=== PATIENT | female | born 1955 | race Two or more races ===

== ENCOUNTER 2025-08-15 08:52 | Emergency (ER) | payer MEDICARE, MEDICAID, SELFPAY ==
--- NOTE | 2025-08-15 09:07 | XR_ITS ---
Examination: Foot, right, 3 views Technique: AP, oblique, lateral views foot, 3 views Date and time of exam: August 15, 2020 5:10 AM INDICATIONS: Redness swelling and pain involving the right foot today FINDINGS: Severe osteopenia Acute appearing fractures fourth and fifth metatarsal necks No remy cortical bone destruction Soft tissue vascular calcification IMPRESSION: Acute appearing fractures fourth and fifth metatarsal neck, clinical correlation advised
--- NOTE | 2025-08-15 09:08 | XR_ITS ---
Examination: Duplex scan of the lower extremity, unilateral right Date and time of exam: August 15, 2025 0942 hours INDICATIONS: Right And pain beginning 4 days ago Technique: Duplex scan of the extremity veins using B-mode/grayscale imaging and Doppler spectral analysis and color flow Attention is directed to internal echogenicity, compression and augmentation involving these veins, color flow assessment, spectral analysis Findings: Major deep venous structures in the extremity demonstrate normal course and caliber. There is no evidence of deep vein thrombosis. Normal color flow and spectral analysis Impression: Negative for DVT..
--- NOTE | 2025-08-15 09:08 | PD.EDRME ---
Rapid Medical Screening Exam RME Arrival date/time: 08/15/25 08:52 70-year-old female with medical history significant for diabetes, hypertension, kidney disease presents with concerns for right foot swelling and redness ongoing since Tuesday Chief Complaint: Ankle/Foot Injury
[2025-08-15 09:13] VITALS: BP 181/77; PULSE 64; RESP 17; TEMP 36.6; O2SAT 98
[2025-08-15 09:38] LABS: Lactate (Lactic Acid) 2.3 mMol/L (0.4-2.0)
[2025-08-15 09:41] LABS: Basophils # (Auto) 0.1 Thou/mm3 (0.0-0.2); Basophils % (Auto) 1 % (0-2.5); Eosinophils # (Auto) 0.2 Thou/mm3 (0.0-0.5); Eosinophils % (Auto) 2 % (0-10); Hematocrit 32.7 % (36.0-46.0); Hemoglobin 10.3 g/dL (12.0-16.0); Immature Granulocytes Auto 0.03 Thou/mm3 (0.00-0.00); Lymphocytes # (Auto) 1.3 Thou/mm3 (1.0-4.8); Lymphocytes % (Auto) 13 % (10-50); Mean Corpuscular HGB Conc 31.5 g/dl (31.0-37.0); Mean Corpuscular Hemoglobin 26.0 pg (25.0-35.0); Mean Corpuscular Volume 83 fL (80-100); Monocytes # (Auto) 0.7 Thou/mm3 (0.0-0.8); Monocytes % (Auto) 7 % (0-12); Neutrophils # (Auto) 7.9 Thou/mm3 (1.8-7.7); Neutrophils % (Auto) 77 % (37-80); Nucleated Red Blood Cell # 0.00 Thou/mm3 (0.00-0.00); Nucleated Red Blood Cell % 0 /100 WBC (0); Platelet Count 230 Thou/mm3 (140-440); RDW Standard Deviation 46.1 fL (36.4-46.3); Red Blood Count 3.96 Miln/mm3 (4.00-5.20); White Blood Count 10.2 Thou/mm3 (3.6-11.0)
[2025-08-15 09:50] LABS: Sed Rate (ESR) 83 mm/hr (0-30)
[2025-08-15 10:03] LABS: Glucose Estimated Average 148 mg/dL (80-131); Hemoglobin A1C 6.8 % Hgb (4.8-6.0)
[2025-08-15 10:35] LABS: Alanine Aminotransferase < 7 U/L (10-49); Albumin, Serum 3.3 gm/dL (3.4-4.8); Albumin/Globulin Ratio 1.7 (1.2-2.2); Alkaline Phosphatase 81 U/L (46-116); Anion Gap 11 (7-16); Aspartate Amino Transferase < 8 U/L (0-34); BUN/Creatinine Ratio 12 Ratio (12-20); Bilirubin,Total 0.5 mg/dL (0.3-1.2); Blood Urea Nitrogen 62 mg/dL (9-23); C-Reactive Protein 1.9 mg/dL (0.0-0.9); Calcium 9.0 mg/dL (8.3-10.6); Calcium (Corrected) 9.6 mg/dL (8.5-10.1); Carbon Dioxide 27.9 mMol/L (20.0-31.0); Chloride 106 mMol/L (98-107); Creatinine (Component) 5.1 mg/dL (0.6-1.3); Globulin 2.0 gm/dL (2.3-3.5); Glucose 235 mg/dL (74-106); Osmolality,Calculated 314 (275-295); Potassium 3.7 mMol/L (3.4-5.1); Procalcitonin 0.12 ng/ml (0.0-0.49); Sodium 145 mMol/L (136-145); Total Protein 5.3 gm/dL (5.7-8.2); eGFR 8 See Note
--- NOTE | 2025-08-15 11:47 | PD.EDANKLE ---
Lower Extremity Injury RME/HPI General Chief Complaint: Ankle/Foot Injury Stated Complaint: RIGHT FOOT PAIN/SWELLING/REDNESS Time Seen by Provider: 08/15/25 11:13 Arrival date/time: 08/15/25 08:52 RME / HPI RME / HPI Narrative: 70-year-old female with medical history significant for diabetes, hypertension, kidney disease presents with concerns for right foot swelling and redness ongoing since Tuesday. Severity mild. Patient denies any fever denies any trauma to the foot denies any other complaints. Patient's family is asking me a I can place the patient to fpc due to inability to care herself, patient lives alone. Patient is diabetic, hypertensive, and chronic kidney disease patient is refusing hemodialysis for a while now. Patient is minimally mobile. Related Data Home Medications ?Medication ?Instructions ?Recorded ?Confirmed amlodipine 5 mg tablet 5 mg PO QDAY 01/21/23 07/08/23 atorvastatin 40 mg tablet 40 mg PO QDAY 01/21/23 07/08/23 glipizide 10 mg tablet 10 mg PO BID 01/21/23 07/08/23 insulin glargine 100 unit/mL 25 unit subcut HS 01/21/23 07/08/23 subcutaneous solution (Lantus U-100 Insulin) lisinopril 20 mg tablet 20 mg PO QDAY 01/21/23 07/08/23 insulin lispro 100 unit/mL See Rx Instructions .Route .COMPLEX 07/11/23 subcutaneous pen (Humalog KwikPen (U-100) Insulin) Previous Rx's ?Medication ?Instructions ?Recorded amoxicillin 875 mg-potassium 1 tab PO BID #14 tabs 08/15/25 clavulanate 125 mg tablet ibuprofen 600 mg tablet 600 mg PO Q8H PRN pain #30 tabs 08/15/25 Allergies Allergy/AdvReac Type Severity Reaction Status Date / Time Anesthetics - Akua Type- Allergy Severe Unresponsiv Verified 07/11/23 09:25 Parabens e Review of Systems Review of Systems Narrative Review of Systems: Review of system reviewed and within normal limits except mentioned in HPI ED Exam Narrative Physical exam: VITAL SIGNS: Reviewed. GENERAL APPEARANCE: Alert and interactive, follows commands, no acute distress, chronically ill HEAD AND FACE: Non-traumatic. ENT: PERRL, pale conjunctiva, eyelid no trauma, Mucous membrane moist. NECK: Supple, nontender, no nuchal rigidity. CHEST: No tenderness, no crepitus, no paradoxical movement, no retractions. LUNGS: Clear, well ventilated, symmetric, no rales, no wheezing, no ronchi, no stridor, good breath sounds bilaterally. HEART: Regular rate, regular rhythm, no murmur, no gallops. ABDOMEN: Soft, positive bowel sounds, nondistended, no guarding, nontender, no rebound, no masses, RECTAL: Deferred. GENITAL: Deferred. NEUROLOGICAL: Gross motor function intact sensory function intact, Appropriate for age. MUSCULOSKELETAL: low back nontender, full range of motion. EXTREMITIES:+ Right foot redness on the 4th and 5th metatarsal phalangeal area dorsal aspect nontender, full range of motion. SKIN: Color pink, dry, no rash, no lacerations, no abrasions, no contusions. LYMPHATICS: Deferred. Course Quality Measures none Orders Category Date Time Status Consult Mineral Surveying Technician NOW Care 08/15/25 11:45 Active Splint / Immobilizer STAT Care 08/15/25 11:45 Active PT [Referral Physical Therapy] Stat Cons 08/15/25 12:06 Active US venous doppler LE RT Stat Exams 08/15/25 09:08 Completed XR foot comp RT min 3V Stat Exams 08/15/25 09:07 Completed A1C [Glycohemoglobin w (eAG)] Stat Lab 08/15/25 09:22 Completed Blood Culture (Lab) Stat Lab 08/15/25 09:22 Received CBC Stat Lab 08/15/25 09:22 Completed CMP [Comprehensive Metabolic Panel] Stat Lab 08/15/25 09:22 Completed CRP [C-Reactive Protein] Stat Lab 08/15/25 09:22 Completed ESR [Sed Rate (ESR)] Stat Lab 08/15/25 09:22 Completed Lactic Acid [Lactate (Lactic Acid)] Stat Lab 08/15/25 09:22 Completed Lactic Acid, 3 HR Stat Lab 08/15/25 12:46 Completed Procalcitonin Stat Lab 08/15/25 09:22 Completed Amoxicillin/Pot Clav 875 [Augmentin 875] Med 08/15/25 11:45 Discontinued 1 tab PO X1 ONE Vital Signs Vital signs: Vital Signs Temperature 97.8 F 08/15/25 09:13 Pulse Rate 64 08/15/25 09:13 Respiratory Rate 17 08/15/25 09:13 Blood Pressure 181/77 H 08/15/25 09:13 Pulse Oximetry (%) 98 08/15/25 09:13 Oxygen Delivery Method Room Air 08/15/25 09:13 Extremity Injury, Lower MDM Narrative [facility] Narrative:: 70-year-old female with medical history significant for diabetes, hypertension, kidney disease presents with concerns for right foot swelling and redness ongoing since Tuesday. Severity mild. Patient denies any fever denies any trauma to the foot denies any other complaints. Patient's family is asking me a I can place the patient to fpc due to inability to care herself, patient lives alone. Patient is diabetic, hypertensive, and chronic kidney disease patient is refusing hemodialysis for a while now. Patient is minimally mobile. X-ray of the foot showed minimally displaced fracture of the 4th and 5th metatarsal neck. Ultrasound of bilateral lower extremities negative for DVT. Patient's laboratory workup is negative for leukocytosis slight anemia 10.3 hematocrit of 32.7 creatinine today was noted to be 5.1 BUN of 62 patient's hemoglobin A1c 6.8 Patient received Augmentin and an Ortho shoe applied. Patient is medically cleared for placement to fpc She was referred to social security specialist feeder worker power unit operator talked to the patient, and patient refused to go to a fpc or any facility. She wanted to go home. She is alert and oriented x 3. Patient data External records reviewed:: None Clinical information provided by:: patient and family Social determinants that could affect healthcare access:: none Patient has the following chronic illnesses:: Hypertension diabetes mellitus chronic kidney disease How is presenting disease/condition affected by chronic disease/condition?: exacerbated by Evaluation data The following diagnostics were reviewed and interpreted by me:: lab results and radiology exam(s) Lab and/or radiology exams considered but not ordered:: None Interpretation Summary: See results MDM Medications / Prescriptions Medications or Prescriptions considered but not ordered:: None Medication administrations:: Medication Administration History Discontinued Medications Amoxicillin/Clavulanate Potassium (Amoxicillin/Pot Clav 875 Tablet) 1 tab PO X1 ONE Stop: 08/15/25 11:46 Last Admin: 08/15/25 12:43 Dose: 1 tab Documented By: CS Augmentin, Consultations Consultation(s) initiated? (list below): No Diagnosis Extremity Injury, Lower Differential Diagnosis: ankle sprain and strain, fracture of toe and ankle fracture Most likely diagnosis given after review of the tests above:: Foot fracture, chronic debility, chronic kidney disease, cellulitis foot Admission Indicated Admission indicated?: not indicated Admission Request Was there a request for admission?: No Disposition Plan Disposition Plan: Discharge Discharge Attestation Discharge Attestation: The patient and all family members were given an opportunity to ask questions and understood the discharge instructions. Discharge instructions specifically effects, indications for sooner follow up or return to the emergency department, and the expected course of current diagnosis. Patient condition: Stable Discharge Plan Plan Patient Disposition: HOME (Self Care) Discharge Disposition comment: Stable Prescriptions/Referrals Prescriptions/Med Rec: New amoxicillin-pot clavulanate 875-125 mg tablet 1 tab PO BID Qty: 14 0RF ibuprofen 600 mg tablet 600 mg PO Q8H PRN (Reason: pain) Qty: 30 0RF No Action atorvastatin 40 mg Tablet 40 mg PO QDAY insulin glargine [Lantus U-100 Insulin] 100 unit/mL Solution 25 unit SUBCUT HS lisinopril 20 mg Tablet 20 mg PO QDAY glipizide 10 mg Tablet 10 mg PO BID amlodipine 5 mg Tablet 5 mg PO QDAY insulin lispro [Humalog KwikPen Insulin] 100 unit/mL insulin pen See Rx Instructions .ROUTE .COMPLEX Patient Comments: INJECT 14 A 20 UNIDADES BAJO LA PIEL SIDRA VECES AL D A KITTY LO INDICADO CON ALIMENTO Rx Instructions: 14-20 units with meals ON HOLD Referrals: Elder Samson PA-C [Primary Care Provider] - In 1 week Problem List Clinical Impression: Metatarsal fracture, Chronic kidney disease, Cellulitis of foot Patient/Caregiver Discharge Instructions Discharge Activity: activity as tolerated Education Materials: ED Cellulitis Additional Instructions: Thank you for the opportunity for serving you today. You are stable for discharged . You are advised to: Follow-up with your PCP in 1 to 2 days Return to ED for worsening of symptoms Increase oral fluids Take medication as prescribed Wear your Ortho shoe for the next 1 month ,ask your PCP to refer you to a linotyper Print Language: Tajik Stand Alone Forms: Michelle Award Info., Patient Portal Info Letter VIPUL/JOSIE Supervising Physician TD Supervising Physician: MD Harvey
[2025-08-15 12:35] LABS: Reflex Lactate? Y
[2025-08-15] MEDS: AMOXICILLIN/POT CLAV 875 TABLET 1 TAB PO (12:43)
[2025-08-15 12:51] LABS: Lactic Acid, 3 HR 1.2 mMol/L (0.4-2.0)
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
--- NOTE | 2025-08-15 14:25 | PC.PT ---
PT eval completed.
== END 2025-08-15 14:30 | disposition home or self-care (01) ==
PROVIDERS: Nurse Practitioner Primary Care; Emergency Provider Family Medicine; PCP Family Medicine
DX: S92.341A Displaced fracture of fourth metatarsal bone, right foot, initial encounter for closed fracture (principal); S92.351A Displaced fracture of fifth metatarsal bone, right foot, initial encounter for closed fracture; L03.115 Cellulitis of right lower limb; I12.9 Hypertensive chronic kidney disease with stage 1 through stage 4 chronic kidney disease, or unspecified chronic kidney disease; E11.22 Type 2 diabetes mellitus with diabetic chronic kidney disease; N18.9 Chronic kidney disease, unspecified; X58.XXXA Exposure to other specified factors, initial encounter; Z60.2 Problems related to living alone; Z91.158 Patient's noncompliance with renal dialysis for other reason; Z79.84 Long term (current) use of oral hypoglycemic drugs; Z79.4 Long term (current) use of insulin
CPT/HCPCS: 36415; 73630; 80053; 83036; 83605; 84145; 85025; 85652; 86140; 87040; 87077; 87186; 93971; 99284; A9270

== ENCOUNTER 2025-08-27 08:07 | Emergency (ER) | payer MEDICARE, MEDICAID, SELFPAY ==
[2025-08-27 08:17] VITALS: BP 161/80; PULSE 60; RESP 18; TEMP 36.7; O2SAT 97; BMI 39.6
--- NOTE | 2025-08-27 08:17 | EKG_ITS ---
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: : 1955 Requested By: Rocky Diana Order Number: [id number] Reading MD: Rocky Diana Measurements Intervals [place] Rate: 58 P: -18 MS: 188 QRS: -30 QRSD: 80 T: 146 QT: 439 QTc: 432 Interpretive Statements SINUS BRADYCARDIA LOW QRS VOLTAGE IN PRECORDIAL LEADS [QRS DEFLECTION < 1.0 mV IN CHEST LEADS] POSSIBLE ANTERIOR MYOCARDIAL INFARCTION , PROBABLY OLD [30 ms Q WAVE IN V3/V4, OR R < 0.2 mV IN V4] MODERATE T-WAVE ABNORMALITY, CONSIDER LATERAL ISCHEMIA [-0.1+ mV T-WAVE IN I/aVL/V5/V6] Compared to ECG 01/21/2023 08:31:43 Low QRS voltage now present Myocardial infarct finding now present Possible ischemia now present Sinus rhythm no longer present T-wave abnormality still present /store/S0/[id number]/ecg/[id number].pdf
--- NOTE | 2025-08-27 08:17 | PD.EDRME ---
Rapid Medical Screening Exam RME Arrival date/time: 08/27/25 08:07 70-year-old female with a history of hypertension, hyperlipidemia, type 2 diabetes was sent to the emergency room by her primary care provider due to abnormal lab levels. Patient states she does not know exactly what was abnormal but thinks there might be an infection or either problems with her kidney function. I have greeted and performed a focused initial assessment of this patient. A comprehensive ED assessment and evaluation of the patient, analysis of all test results, and completion of the medical decision making process will be conducted by additional ED providers. Chief Complaint: General Adult/Misc Complain Vital signs reviewed by provider: Yes
[2025-08-27 08:42] LABS: Basophils # (Auto) 0.1 Thou/mm3 (0.0-0.2); Basophils % (Auto) 1 % (0-2.5); Eosinophils # (Auto) 0.3 Thou/mm3 (0.0-0.5); Eosinophils % (Auto) 4 % (0-10); Hematocrit 33.0 % (36.0-46.0); Hemoglobin 10.3 g/dL (12.0-16.0); Immature Granulocytes Auto 0.04 Thou/mm3 (0.00-0.00); Lymphocytes # (Auto) 1.7 Thou/mm3 (1.0-4.8); Lymphocytes % (Auto) 20 % (10-50); Mean Corpuscular HGB Conc 31.2 g/dl (31.0-37.0); Mean Corpuscular Hemoglobin 25.9 pg (25.0-35.0); Mean Corpuscular Volume 83 fL (80-100); Monocytes # (Auto) 0.5 Thou/mm3 (0.0-0.8); Monocytes % (Auto) 6 % (0-12); Neutrophils # (Auto) 5.7 Thou/mm3 (1.8-7.7); Neutrophils % (Auto) 68 % (37-80); Nucleated Red Blood Cell # 0.00 Thou/mm3 (0.00-0.00); Nucleated Red Blood Cell % 0 /100 WBC (0); Platelet Count 230 Thou/mm3 (140-440); RDW Standard Deviation 48.3 fL (36.4-46.3); Red Blood Count 3.97 Miln/mm3 (4.00-5.20); White Blood Count 8.4 Thou/mm3 (3.6-11.0)
[2025-08-27 08:44] VITALS: BP 156/97; PULSE 58; RESP 17; TEMP 36.4; O2SAT 98
[2025-08-27 09:01] LABS: Collection Type, Urine Clean Catch
[2025-08-27 09:04] LABS: INR 1.0 (0.9-1.3); Partial Thromboplastin Time 24.4 Seconds (22.0-36.0); Prothrombin Time 10.4 Seconds (9.0-12.2)
[2025-08-27 09:07] LABS: B-Type Natriuretic Peptide 422 pg/mL (0-100)
[2025-08-27 09:19] LABS: Alanine Aminotransferase < 7 U/L (10-49); Albumin, Serum 3.4 gm/dL (3.4-4.8); Albumin/Globulin Ratio 1.5 (1.2-2.2); Alkaline Phosphatase 71 U/L (46-116); Anion Gap 12 (7-16); Aspartate Amino Transferase 10 U/L (0-34); BUN/Creatinine Ratio 10 Ratio (12-20); Bilirubin,Total 0.3 mg/dL (0.3-1.2); Blood Urea Nitrogen 50 mg/dL (9-23); Calcium 9.7 mg/dL (8.3-10.6); Calcium (Corrected) 10.2 mg/dL (8.5-10.1); Carbon Dioxide 25.9 mMol/L (20.0-31.0); Chloride 107 mMol/L (98-107); Creatinine (Component) 5.2 mg/dL (0.6-1.3); Estimated Creatinine Clearance 10.3 mL/min (>60); Globulin 2.2 gm/dL (2.3-3.5); Glucose 262 mg/dL (74-106); Lipase 42 U/L (12-53); Magnesium 1.9 mg/dL (1.6-2.6); Osmolality,Calculated 311 (275-295); Potassium 3.7 mMol/L (3.4-5.1); Sodium 145 mMol/L (136-145); Total Protein 5.6 gm/dL (5.7-8.2); Troponin I < 0.020 ng/mL (0.0-0.045); eGFR 8 See Note
[2025-08-27 09:24] LABS: Bacteria,Urine Rare; Bilirubin,Urine Negative (Negative); Blood,Urine 1+ (Negative); Clarity,Urine Clear (Clear/Hazy); Color,Urine Lt-Yellow (Lt Yel-Yel); Glucose, Urine 3+ (Negative); Hyaline Casts,Urine < 1 /hpf (0-1); Ketones,Urine Negative (Negative); Leukocyte Esterase,Urine Positive (Negative); Nitrite,Urine Negative (Negative); PH,Urine 7.5 (5.0-7.0); Protein,Urine 3+ (Neg - Trace); RBC,Urine 1 /hpf (0-3); Specific Gravity,Urine 1.019 (1.001-1.035); Squamous Epithelial Cell,Urine 19 /hpf (0-5); Urobilinogen,Urine Negative mg/dL (0.0-1.0); WBC,Urine 37 /hpf (0-5)
--- NOTE | 2025-08-27 09:26 | PD.EDADULT ---
ED General RME/HPI General Chief complaint: General Adult/Misc Complain Stated complaint: CALLED/TOLD TO RETURN FOR INFECTION IN BLOOD Time Seen by Provider: 08/27/25 09:04 Arrival date/time: 08/27/25 08:07 RME / HPI RME / HPI narrative: 08/27/25 08:07 70-year-old female with a history of hypertension, hyperlipidemia, type 2 diabetes was sent to the emergency room by her primary care provider due to abnormal lab levels. Patient states she does not know exactly what was abnormal but thinks there might be an infection or either problems with her kidney function. I have greeted and performed a focused initial assessment of this patient. A comprehensive ED assessment and evaluation of the patient, analysis of all test results, and completion of the medical decision making process will be conducted by additional ED providers. DR. PERSON MAIN ED EVALUATION 70 year old female with history of hypertension, diabetes, hyperlipidemia, chronic kidney disease presents to the ED for evaluation of abnormal labs. Patient states she was called today stating she has an infection in her blood. Patient states she last had labs drawn 2 weeks ago while here for an infection in her foot. States last week she was was coughing, none in the last 2 days. Denies chest pain, shortness of breath, abdominal pain, n/v/d, or urinary symptoms. Related Data Home Medications ?Medication ?Instructions ?Recorded ?Confirmed atorvastatin 40 mg tablet 40 mg PO QDAY 01/21/23 07/08/23 glipizide 10 mg tablet 10 mg PO BID 01/21/23 07/08/23 insulin glargine 100 unit/mL 25 unit subcut HS 01/21/23 07/08/23 subcutaneous solution (Lantus U-100 Insulin) lisinopril 20 mg tablet 20 mg PO QDAY 01/21/23 07/08/23 insulin lispro 100 unit/mL See Rx Instructions .Route .COMPLEX 07/11/23 subcutaneous pen (Humalog KwikPen (U-100) Insulin) Previous Rx's ?Medication ?Instructions ?Recorded amoxicillin 875 mg-potassium 1 tab PO BID #14 tabs 08/15/25 clavulanate 125 mg tablet amlodipine 10 mg tablet 10 mg PO QDAY #30 tabs 08/27/25 Allergies Allergy/AdvReac Type Severity Reaction Status Date / Time Anesthetics - Akua Type- Allergy Severe Unresponsiv Verified 08/27/25 08:10 Mynor noriega Review of Systems Review of Systems Systems Reviewed: All systems reviewed, normal except as documented Past Medical History Past Medical History CARDIAC: Positive Cardiac Disorders, Hypercholesterolemia and Hypertension RESPIRATORY: Positive Asthma and Pneumonia GASTROINTESTINAL: Positive Gastrointestinal Disorders and Obesity REPRODUCTIVE: Positive Previous Pregnancies ENT: Positive Cataracts ENDOCRINE: Positive Endocrine Disorders and Diabetes Mellitus Type 2 PSYCHO/SOCIAL: Positive Depression (no meds) OTHER HISTORY: Positive Chicken Pox Family History FAMILY HISTORY: Positive Family Cardiac Disorders Surgical History SURGICAL: Positive Hysterectomy Social History SMOKING STATUS: Never smoker ED Exam Narrative Physical exam: Constitutional: Awake, alert, nontoxic, no acute distress, obese HEENT: NC, AT, EOMI Neck: Supple CV: RRR, no m/r/g Lungs: CTAB, no w/r/r, no respiratory distress. Abd: Soft, NT, NT, no HSM noted to palpation Extremities: Dull old bruising to the dorsal aspect of right foot. No deformities, no edema noted Neuro: AAOx3, CN 2-12 GIBL, no acute neuro deficit noted. Skin: Warm, dry, intact Course Course Course Narrative: 944h: Patient was called back for positive blood culture 1 out of 2 sets from 08/15 that showed Staphylococcus hominis. She is currently asymptomatic, afebrile, feeling well. Blood pressure is noted to be elevated today in the 220's/80's with amlodipine 5 mg and lisinopril 20 mg noted on her medication list. Took her medications this morning. Would consider increasing her amlodipine to 10 mg. Otherwise the remainder of her labs appear stable from previous with normal white count and no clinical evidence of infection. When she was here on the she was treated for cellulitis with course of Augmentin. At this point the positive blood culture appears likely a contaminant. Would adjust her blood pressure medication and have her follow-up with her primary doctor outpatient in the next few days for recheck. Quality Measures none Orders Category Date Time Status EKG (ED ONLY) *Do not use* NOW Care 08/27/25 08:17 Completed EKG (ED Only) Stat Exams 08/27/25 08:17 Draft B-Type Natriuretic Peptide Stat Lab 08/27/25 08:36 Completed CBC Stat Lab 08/27/25 08:36 Completed CMP [Comprehensive Metabolic Panel] Stat Lab 08/27/25 08:36 Completed Lipase Stat Lab 08/27/25 08:36 Completed Magnesium Stat Lab 08/27/25 08:36 Completed PT [Prothrombin Time with INR] Stat Lab 08/27/25 08:36 Completed PTT [Partial Thromboplastin Time] Stat Lab 08/27/25 08:36 Completed Troponin I Stat Lab 08/27/25 08:36 Completed UA [Urinalysis] Stat Lab 08/27/25 08:40 Completed Urine Culture Stat Lab 08/27/25 08:40 Received amLODIPine BESYLATE [Norvasc] Med 08/27/25 09:53 Discontinued 5 mg PO X1 ONE Vital Signs Vital signs: Vital Signs Temperature 98.1 F 08/27/25 08:17 Pulse Rate 60 08/27/25 08:17 Respiratory Rate 18 08/27/25 08:17 Blood Pressure 161/80 H 08/27/25 08:17 Pulse Oximetry (%) 97 08/27/25 08:17 Oxygen Delivery Method Room Air 08/27/25 08:17 Pulse ox is 97% on room air which is adequate. Discharge Plan Plan Patient Disposition: HOME (Self Care) Patient condition on transfer: Stable Prescriptions/Referrals Prescriptions/Med Rec: New amlodipine 10 mg tablet 10 mg PO QDAY Qty: 30 0RF Discontinued amlodipine 5 mg Tablet 5 mg PO QDAY ibuprofen 600 mg tablet 600 mg PO Q8H PRN (Reason: pain) Qty: 30 0RF No Action atorvastatin 40 mg Tablet 40 mg PO QDAY insulin glargine [Lantus U-100 Insulin] 100 unit/mL Solution 25 unit SUBCUT HS lisinopril 20 mg Tablet 20 mg PO QDAY glipizide 10 mg Tablet 10 mg PO BID insulin lispro [Humalog KwikPen Insulin] 100 unit/mL insulin pen See Rx Instructions .ROUTE .COMPLEX Patient Comments: INJECT 14 A 20 UNIDADES BAJO LA PIEL SIDRA VECES AL D A KITTY LO INDICADO CON ALIMENTO Rx Instructions: 14-20 units with meals ON HOLD amoxicillin-pot clavulanate 875-125 mg tablet 1 tab PO BID Qty: 14 0RF Problem List Clinical Impression: Abnormal laboratory test result, Hypertension, uncontrolled Patient/Caregiver Discharge Instructions Education Materials: Controlling High Blood Pressure, Low-Salt Choices, Hypertension Dc, Eating Heart-Healthy Foods Additional Instructions: Some general health principles that can benefit you are the [employer] principles Nutrition (plant-based, less processed foods) Exercise (daily as tolerated) Water (fresh water better for hydration rather than sodas, juice, etc) [place] (spend time in the chicken vaccinator and late evening sun for your vitamin D) [place] (avoid alcohol, drugs, caffeinated beverages) Air (exposure to fresh air in nature daily when possible) Rest (adequate sleep at night, trying to go to bed no later than 9-10pm; good sleep hygiene - avoiding loud noises, phones, television prior to bed) Trust in God (spend time daily in prayer and reading scripture, contemplating a God of love) See additional resources at www.[employer] by [email or web address], look under resources and seminars, as well as blogs. Print Language: [place] Stand Alone Forms: Michelle Award Info., Patient Portal Info Letter MDM Narrative MDM hospital course (for use when minimal MDM required): Sharonda Devlin am scribing for and in the presence of Dr. Person. Clinical Information Provided by: patient Medical Records reviewed [facility] Meds/Rx considered, not ordered None Labs/Rad/Tests considered, not ordered None Chronic Illness/Social Conditions which may negatively complicate care or outcome(s)-explain: None or not applicable EKG Interpretation EKG #1: EKG Interpretation: EKG @ 08:22 AM. Sinus bradycardia, rate 58, no acute ischemic changes, no STEMI. Labs Labs: see narrative above Imaging Imaging interpretation: none Medication Administration(s) Medication Administration History Discontinued Medications Amlodipine Besylate (Amlodipine Besylate 5 Mg Tablet) 5 mg PO X1 ONE Stop: 08/27/25 09:54 Last Admin: 08/27/25 10:14 Dose: 5 mg Documented By: GM Amlodipine 5mg Diagnosis Diagnoses ruled out and/or further discussions: Abnormal laboratory test result Hypertension, uncontrolled
[2025-08-27 10:11] VITALS: BP 211/85; PULSE 64; RESP 12; TEMP 36.6; O2SAT 97
[2025-08-27 10:14] VITALS: BP 211/85; PULSE 60
[2025-08-27 10:39] VITALS: BP 164/61
== END 2025-08-27 10:45 | disposition home or self-care (01) ==
LOC: SERX 10:13
PROVIDERS: Nurse Practitioner Family; Emergency Provider Family Medicine; PCP Family Medicine
DX: R79.89 Other specified abnormal findings of blood chemistry (principal); I12.9 Hypertensive chronic kidney disease with stage 1 through stage 4 chronic kidney disease, or unspecified chronic kidney disease; E11.22 Type 2 diabetes mellitus with diabetic chronic kidney disease; N18.9 Chronic kidney disease, unspecified; R00.1 Bradycardia, unspecified; Z79.84 Long term (current) use of oral hypoglycemic drugs; Z79.4 Long term (current) use of insulin
CPT/HCPCS: 36415; 80053; 81001; 83690; 83735; 83880; 84484; 85025; 85610; 85730; 87077; 87086; 87186; 93005; 99284; A9270

== ENCOUNTER 2025-10-18 13:07 | Emergency (ER) | payer MEDICARE, MEDICAID, SELFPAY ==
[2025-10-18 13:11] VITALS: BP 107/52; PULSE 48; RESP 18; TEMP 36.5; O2SAT 97
[2025-10-18 13:22] VITALS: PULSE 44
[2025-10-18 13:39] VITALS: PULSE 48
--- NOTE | 2025-10-18 13:39 | XR_ITS ---
Examination: CT brain head without contrast. 2-D sagittal coronal reconstructions Date and time of exam: October 18, 2025, 1403 hours INDICATIONS: Onset syncopal episode and dizziness today CTDI: vol (mGy): 51 DLP: (mGycm): 995 Technique: Multiple CT axial sections of the brain have been obtained, 5 mm slice thickness. Contrast has not been administered. 2-D sagittal, coronal reconstructions have been obtained Low dose protocols were performed. One or more of the following dose reduction techniques were used; automated exposure control, adjustment of the mA and/or KV according to patient size, use of iterative reconstruction technique. Findings: No significant ventricular enlargement. 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 No mass effect or midline shift Basal cisterns are not remarkable. Fourth ventricle is midline. Cranial vault intact. Impression: Negative for acute hemorrhage, mass effect or midline shift
--- NOTE | 2025-10-18 13:39 | XR_ITS ---
EXAMINATION: AP chest single view TECHNIQUE: AP portable supine chest single view Date and time: October 18, 2025, 1428 hours INDICATIONS: Syncopal episode today. FINDINGS: The film is rotated LPO which accentuates a left ventricular contour Right internal jugular dialysis catheter tip SVC No pneumonia or pulmonary edema Prominent osteopenia IMPRESSION: No pneumonia or pulmonary edema
--- NOTE | 2025-10-18 13:39 | EKG_ITS ---
[facility] Test Date: 2025-10-18 Pat Name: KOLE LIUDepartment: Room: - Gender: Female [employer]: : 1955 Requested By: Gemma Crook Order Number: [id number] Reading MD: Gemma Crook Measurements Intervals [place] Rate: 50 P: -72 ND: 88 QRS: -50 QRSD: 70 T: 97 QT: 411 QTc: 377 Interpretive Statements JUNCTIONAL BRADYCARDIA INFERIOR MYOCARDIAL INFARCTION , PROBABLY OLD [40+ ms Q WAVE AND/OR ST/T ABNORMALITY IN II/aVF] ANTEROSEPTAL MYOCARDIAL INFARCTION , PROBABLY OLD [40+ ms Q WAVE IN V1-V4] Compared to ECG 08/27/2025 08:22:48 Sinus bradycardia no longer present T-wave abnormality no longer present Possible ischemia no longer present Myocardial infarct finding still present /store/S0/[id number].pdf
--- NOTE | 2025-10-18 13:40 | PD.EDSYNC ---
ED Syncope RME/HPI General Chief Complaint: Syncope / Near Syncope Stated Complaint: SYNCOPE EPISODE Time Seen by Provider: 10/18/25 13:35 Arrival date/time: 10/18/25 13:07 70-year-old female patient with significant history of hypertension, diabetes mellitus, ESRD, on hemodialysis, was brought in by EMS for evaluation regarding syncope. Apparently patient was helped by her sister going to the restroom while sitting in the bowel, patient was noted to be nonresponsive no injury related to the incident. On my initial evaluation patient is complaining of dizziness and headache denies any upper or lower extremity weakness no blurry vision no vomiting no fever no abdominal pain no chest pain. She is scheduled for hemodialysis tomorrow Related Data Home Medications ?Medication ?Instructions ?Recorded ?Confirmed atorvastatin 40 mg tablet 40 mg PO QDAY 01/21/23 07/08/23 glipizide 10 mg tablet 10 mg PO BID 01/21/23 07/08/23 insulin glargine 100 unit/mL 25 unit subcut HS 01/21/23 07/08/23 subcutaneous solution (Lantus U-100 Insulin) lisinopril 20 mg tablet 20 mg PO QDAY 01/21/23 07/08/23 insulin lispro 100 unit/mL See Rx Instructions .Route .COMPLEX 07/11/23 subcutaneous pen (Humalog KwikPen (U-100) Insulin) Previous Rx's ?Medication ?Instructions ?Recorded amoxicillin 875 mg-potassium 1 tab PO BID #14 tabs 08/15/25 clavulanate 125 mg tablet amlodipine 10 mg tablet 10 mg PO QDAY #30 tabs 08/27/25 cefuroxime axetil 500 mg tablet 500 mg PO BID #14 tabs 10/18/25 Allergies Allergy/AdvReac Type Severity Reaction Status Date / Time Anesthetics - [place] Type- Allergy Severe Unresponsiv Verified 08/27/25 08:10 Parabens e Review of Systems Review of Systems Narrative Review of Systems: Review of system reviewed and within normal limits except mentioned in HPI ED Exam Narrative Physical exam: VITAL SIGNS: Reviewed. GENERAL APPEARANCE: Alert and interactive, follows commands, no acute distress, HEAD AND FACE: Non-traumatic. ENT: PERRL, pink conjunctivitis, eyelid no trauma, Mucous membrane moist. NECK: Supple, nontender, no nuchal rigidity. CHEST: No tenderness, no crepitus, no paradoxical movement, no retractions. LUNGS: Clear, well ventilated, symmetric, no rales, no wheezing, no ronchi, no stridor, good breath sounds bilaterally. HEART: Regular rate, regular rhythm, no murmur, no gallops. ABDOMEN: Soft, positive bowel sounds, nondistended, no guarding, nontender, no rebound, no masses, RECTAL: Deferred. GENITAL: Deferred. NEUROLOGICAL: Gross motor function intact sensory function intact, Appropriate for age. MUSCULOSKELETAL: low back nontender, full range of motion. EXTREMITIES: Nontender, full range of motion. SKIN: Color pink, dry, no rash, no lacerations, no abrasions, no contusions. LYMPHATICS: Deferred. Course Quality Measures none Orders Category Date Time Status EKG (ED ONLY) *Do not use* NOW Care 10/18/25 13:40 Completed In and Out Catheter X1 Care 10/18/25 17:[address] head/brain wo con Stat Exams 10/18/25 13:39 Completed EKG (ED Only) Stat Exams 10/18/25 13:39 Draft XR chest 1V Stat Exams 10/18/25 13:39 Completed B-Type Natriuretic Peptide Stat Lab 10/18/25 14:46 Completed CBC Stat Lab 10/18/25 14:46 Completed Comprehensive Metabolic Panel Stat Lab 10/18/25 14:46 Completed Partial Thromboplastin Time Stat Lab 10/18/25 14:46 Completed Troponin I Stat Lab 10/18/25 14:46 Completed Urinalysis, C/S if Indicated Stat Lab 10/18/25 15:16 Completed Urine Culture Stat Lab 10/18/25 15:16 Received Meclizine HCl [Antivert] Med 10/18/25 13:41 Discontinued 25 mg PO X1 ONE cefTRIAXone/D5w 1gm IV premix [Rocephin/D5w 1gm IV Med 10/18/25 16:51 Discontinued premix] 1 gm in 50 ml IV X1 Vital Signs Vital signs: Vital Signs Temperature 97.7 F 10/18/25 13:11 Pulse Rate 48 L 10/18/25 13:11 Respiratory Rate 18 10/18/25 13:11 Blood Pressure 107/52 L 10/18/25 13:11 Pulse Oximetry (%) 97 10/18/25 13:11 Oxygen Delivery Method Room Air 10/18/25 13:11 Syncope MDM Narrative MDM Narrative:: 10/18/25 13:07 70-year-old female patient with significant history of hypertension, diabetes mellitus, ESRD, on hemodialysis, was brought in by EMS for evaluation regarding syncope. Apparently patient was helped by her sister going to the restroom while sitting in the bowel, patient was noted to be nonresponsive no injury related to the incident. On my initial evaluation patient is complaining of dizziness and headache denies any upper or lower extremity weakness no blurry vision no vomiting no fever no abdominal pain no chest pain. She is scheduled for hemodialysis tomorrow EKG showed no ST segment elevation or depression noted, ventricular rate of 50 bpm, sinus bradycardia. Laboratory Significant for end-stage renal disease potassium is normal creatinine is elevated. Urinalysis positive for UTI. Patient was given suppression IV. No recurrence of syncope noted in the ED. Patient stable for charged home. Patient data External records reviewed:: None Clinical information provided by:: patient Social determinants that could affect healthcare access:: none Patient has the following chronic illnesses:: Hypertension diabetes mellitus, ESRD How is presenting disease/condition affected by chronic disease/condition?: exacerbated by Evaluation data The following diagnostics were reviewed and interpreted by me:: lab results, radiology exam(s) and EKG tracing(s) Lab and/or radiology exams considered but not ordered:: None Interpretation Summary: CT scan of the head came back unremarkable. Chest x-ray came back normal. Medications / Prescriptions Medications or Prescriptions considered but not ordered:: None Medication administrations:: Medication Administration History Discontinued Medications Ceftriaxone Sodium/Dextrose (Rocephin/D5w 1gm Iv Premix) 1 gm in 50 mls @ 100 mls/hr IV X1 ONE Stop: 10/18/25 17:20 Last Admin: 10/18/25 17:14 Dose: 100 mls/hr Documented By: EF Meclizine HCl (Meclizine Hcl 25 Mg Tablet) 25 mg PO X1 ONE Stop: 10/18/25 13:42 Last Admin: 10/18/25 13:54 Dose: 25 mg Documented By: EF Meclizine and ceftriaxone IM Consultations Consultation(s) initiated? (list below): No Diagnosis Syncope Differential Diagnosis: syncope due to orthostatic hypotension, vasovagal syncope and dehydration Most likely diagnosis given after review of the tests above:: Vasovagal syncope, UTI Admission Indicated Admission indicated?: not indicated Explain why admission is indicated or not indicated:: Stable Admission Request Was there a request for admission?: No Disposition Plan Disposition Plan: Discharge Discharge Attestation Discharge Attestation: The patient and all family members were given an opportunity to ask questions and understood the discharge instructions. Discharge instructions specifically effects, indications for sooner follow up or return to the emergency department, and the expected course of current diagnosis. Patient condition: Stable Discharge Plan Plan Patient Disposition: HOME (Self Care) Discharge Disposition comment: stable Prescriptions/Referrals Prescriptions/Med Rec: New cefuroxime axetil 500 mg tablet 500 mg PO BID Qty: 14 0RF No Action atorvastatin 40 mg Tablet 40 mg PO QDAY insulin glargine [Lantus U-100 Insulin] 100 unit/mL Solution 25 unit SUBCUT HS lisinopril 20 mg Tablet 20 mg PO QDAY glipizide 10 mg Tablet 10 mg PO BID insulin lispro [Humalog KwikPen Insulin] 100 unit/mL insulin pen See Rx Instructions .ROUTE .COMPLEX Patient Comments: INJECT 14 A 20 UNIDADES BAJO LA PIEL SIDRA VECES AL D A KITTY LO INDICADO CON ALIMENTO Rx Instructions: 14-20 units with meals ON HOLD amoxicillin-pot clavulanate 875-125 mg tablet 1 tab PO BID Qty: 14 0RF amlodipine 10 mg tablet 10 mg PO QDAY Qty: 30 0RF Referrals: No Primary/Family,Physician [Primary Care Provider] - In 1 week Problem List Clinical Impression: Vasovagal syncope, UTI (urinary tract infection) Patient/Caregiver Discharge Instructions Discharge Activity: activity as tolerated Education Materials: Urinary Tract Infections in Women Additional Instructions: Thank you for the opportunity for serving you today. You are stable for discharged . You are advised to: Follow-up with your PCP in 1 to 2 days Return to ED for worsening of symptoms Take medication as prescribed Print Language: Faroese Stand Alone Forms: Michelle Award Info., Patient Portal Info Letter PA/[employer] REP Supervising Physician VIPUL/JOSIE Supervising Physician: MD Jose Miguel
[2025-10-18] MEDS: MECLIZINE HCL 25 MG TABLET PO (13:54)
[2025-10-18 15:01] LABS: Basophils # (Auto) 0.1 Thou/mm3 (0.0-0.2); Basophils % (Auto) 1 % (0-2.5); Eosinophils # (Auto) 0.1 Thou/mm3 (0.0-0.5); Eosinophils % (Auto) 1 % (0-10); Hematocrit 33.3 % (36.0-46.0); Hemoglobin 10.9 g/dL (12.0-16.0); Immature Granulocytes Auto 0.05 Thou/mm3 (0.00-0.00); Lymphocytes # (Auto) 1.3 Thou/mm3 (1.0-4.8); Lymphocytes % (Auto) 16 % (10-50); Mean Corpuscular HGB Conc 32.7 g/dl (31.0-37.0); Mean Corpuscular Hemoglobin 27.2 pg (25.0-35.0); Mean Corpuscular Volume 83 fL (80-100); Monocytes # (Auto) 0.7 Thou/mm3 (0.0-0.8); Monocytes % (Auto) 9 % (0-12); Neutrophils # (Auto) 5.9 Thou/mm3 (1.8-7.7); Neutrophils % (Auto) 72 % (37-80); Nucleated Red Blood Cell # 0.00 Thou/mm3 (0.00-0.00); Nucleated Red Blood Cell % 0 /100 WBC (0); Platelet Count 203 Thou/mm3 (140-440); RDW Standard Deviation 47.8 fL (36.4-46.3); Red Blood Count 4.01 Miln/mm3 (4.00-5.20); White Blood Count 8.2 Thou/mm3 (3.6-11.0)
[2025-10-18 15:18] LABS: Partial Thromboplastin Time 25.1 Seconds (22.0-36.0)
[2025-10-18 15:24] LABS: B-Type Natriuretic Peptide 104 pg/mL (0-100)
[2025-10-18 15:25] LABS: Collection Type, Urine Clean Catch
[2025-10-18 15:25] LABS: Alanine Aminotransferase 14 U/L (10-49); Albumin, Serum 4.2 gm/dL (3.4-4.8); Albumin/Globulin Ratio 2.2 (1.2-2.2); Alkaline Phosphatase 74 U/L (46-116); Anion Gap 13 (7-16); Aspartate Amino Transferase 18 U/L (0-34); BUN/Creatinine Ratio 4 Ratio (12-20); Bilirubin,Total 0.2 mg/dL (0.3-1.2); Blood Urea Nitrogen 21 mg/dL (9-23); Calcium 8.8 mg/dL (8.3-10.6); Calcium (Corrected) 8.8 mg/dL (8.5-10.1); Carbon Dioxide 27.6 mMol/L (20.0-31.0); Chloride 96 mMol/L (98-107); Creatinine (Component) 4.9 mg/dL (0.6-1.3); Globulin 1.9 gm/dL (2.3-3.5); Glucose 303 mg/dL (74-106); Osmolality,Calculated 287 (275-295); Potassium 3.8 mMol/L (3.4-5.1); Sodium 137 mMol/L (136-145); Total Protein 6.1 gm/dL (5.7-8.2); Troponin I < 0.020 ng/mL (0.0-0.045); eGFR 9 See Note
[2025-10-18 15:43] LABS: Bacteria,Urine Rare; Bilirubin,Urine Negative (Negative); Blood,Urine Trace (Negative); Color,Urine Yellow (Lt Yel-Yel); Glucose, Urine 3+ (Negative); Hyaline Casts,Urine < 1 /hpf (0-1); Ketones,Urine Negative (Negative); Leukocyte Esterase,Urine Positive (Negative); Nitrite,Urine Negative (Negative); PH,Urine 7.0 (5.0-7.0); Protein,Urine 3+ (Neg - Trace); RBC,Urine 2 /hpf (0-3); Specific Gravity,Urine 1.023 (1.001-1.035); Squamous Epithelial Cell,Urine 7 /hpf (0-5); Urobilinogen,Urine Negative mg/dL (0.0-1.0); WBC,Urine 459 /hpf (0-5)
[2025-10-18 16:21] LABS: Clarity,Urine Hazy (Clear/Hazy); Culture Indicated,Urine Yes
[2025-10-18 16:47] VITALS: BP 96/45; PULSE 55; RESP 20; TEMP 36.5; O2SAT 95
[2025-10-18] MEDS: cefTRIAXone/D5w 1gm IV premix 1 GM/50 ML BAG IV (17:14)
[2025-10-18 18:25] VITALS: BP 112/42; PULSE 53; RESP 16; TEMP 36.9; O2SAT 95
--- NOTE | 2025-10-18 19:28 | PC.NURSE ---
Received report from day shift RN Elder, Pt is dc'd at time of shift change. Pt alert and oriented x4, GCS 15, vss, dc instructions reviewed and pt verbalized understanding.
== END 2025-10-18 19:30 | disposition home or self-care (01) ==
PROVIDERS: Nurse Practitioner Family; Emergency Provider Family Medicine
DX: R55 Syncope and collapse (principal); N39.0 Urinary tract infection, site not specified; E11.22 Type 2 diabetes mellitus with diabetic chronic kidney disease; I12.0 Hypertensive chronic kidney disease with stage 5 chronic kidney disease or end stage renal disease; N18.6 End stage renal disease; Z79.84 Long term (current) use of oral hypoglycemic drugs; Z99.2 Dependence on renal dialysis
CPT/HCPCS: 36415; 51701; 70450; 71045; 80053; 81001; 83880; 84484; 85025; 85730; 87086; 93005; 96365; 99284; J0696; A9270